=== PATIENT | female | born 1965 | race Caucasian/White ===

== ENCOUNTER → 2016-10-03 | Outpatient (CLI) | payer BC, OTHER ==
[2016-10-03 14:58] LABS: ALT 86 U/L (9-52); AST 76 U/L (14-36)
--- NOTE | 2016-10-05 07:38 | MM ---
Reason for exam: additional evaluation requested from prior study. Last mammogram was performed 3 years and 2 months ago. History: Patient is postmenopausal. Physical Findings: Nurse did not find any significant physical abnormalities on exam. [facility] Diagnostic Mammo w CAD [facility]CHO Bilateral CC and MLO view(s) were taken. Prior study comparison: August 07, 2013, bilateral digital screening mammo w/CAD. June 02, 2009, mammogram, performed at [facility]. There are scattered fibroglandular densities. Previous mammotome biopsy in the right breast. No significant new findings when compared with previous films. These results were verbally communicated with the patient and result sheet given to the patient on 10/03/16. ASSESSMENT: Benign, BI-RAD 2 RECOMMENDATION: Routine screening mammogram of both breasts in 1 year.
== END | disposition home or self-care (01) ==
LOC: RADMAMWWP 14:03
PROVIDERS: ATTEND Family Medicine
DX: N63 Unspecified lump in breast (principal); R92.8 Other abnormal and inconclusive findings on diagnostic imaging of breast; E78.00 Pure hypercholesterolemia, unspecified
CPT/HCPCS: 84450; 84460; G0204

== ENCOUNTER → 2016-10-05 | Outpatient (CLI) | payer BC ==
[2016-10-05 15:04] LABS: ALT 74 U/L (9-52); AST 60 U/L (14-36); Alkaline Phosphatase 149 U/L (38-126); Bilirubin, Delta 0.5 mg/dL (0.0-0.2); GGT 279 U/L (12-43); Total Bilirubin 0.6 mg/dL (0.2-1.3); Total Protein 8.4 g/dL (6.3-8.2)
[2016-10-05 15:35] LABS: Hepatitis B Surface Ag Index 0.09
[2016-10-05 15:41] LABS: Hepatitis B Core IgM Index 0.05
[2016-10-05 15:53] LABS: Hepatitis C Virus IgG Index 0.03
[2016-10-05 15:54] LABS: Hepatitis C Virus IgG Ab Negative (Negative)
== END | disposition home or self-care (01) ==
LOC: LABWHC1 13:49
PROVIDERS: ATTEND Family Medicine
DX: R94.5 Abnormal results of liver function studies (principal)
CPT/HCPCS: 36415; 80074; 80076; 82977

== ENCOUNTER 2016-11-14 10:57 | Day surgery (SDC) | payer BC ==
[2016-11-09 16:24] VITALS: BMI 28.1
[~2016-11-14 10:57] MED LIST: LACTATED RINGERS 1,000 ML IV SCH
[2016-11-14 11:34] VITALS: TEMP 98
[2016-11-14] MEDS ORDERED: LACTATED RINGERS 1,000 ML IV ONE (11:34)
[2016-11-14] MEDS ORDERED: LIDOCAINE 1% 20 ML VIAL (10MG/ML) FOR IV START INTRADERMA ONE (11:51)
[2016-11-14] MEDS ORDERED: PROPOFOL 10 MG/ML 20 ML VIAL IV ONE (12:37)
--- NOTE | 2016-11-14 13:23 | P.PCN ---
Date of Procedure: 11/14/16 Procedure(s) Performed: Procedure: Colonoscopy and biopsy. Preoperative diagnosis: Screening for neoplasia. Postoperative diagnosis: Diminutive distal sigmoid polyps consistent with hyperplastic polyps biopsied, otherwise, exam to the cecum showed no obvious abnormalities. Preparation: HalfLytely prep. Sedation: Was provided by anesthesia. Brief clinical history: The patient is a 51-year-old female who is referred for this evaluation for screening for neoplasia age being her risk factor in addition to family history of colon cancer in her father. The patient has no abdominal complaints, bleeding or anemia. This would be her first colonoscopy. Procedure: With the patient on her left lateral decubitus position and after informed consent and adequate sedation, the perianal area was inspected and it did not show any fissures or fistulas. There were no masses felt on digital rectal examination. The Olympus CFQ 160L video colonoscope was then inserted in the rectum in the usual fashion and advanced to the cecum. There were several small/diminutive polyps in the distal sigmoid consistent with hyperplastic polyps couple where biopsied, but there were no large polyps or cancer or other significant pathology. I retroflexed the endoscope in the rectum before the endoscope was withdrawn. The patient tolerated the procedure well. Plan: The patient was reassured. Will await biopsy results. I anticipate repeating this exam in 5 years.
[2016-11-14 13:37] VITALS: BP 137/78; PULSE 68; RESP 18
== END 2016-11-14 14:08 | disposition home or self-care (01) ==
LOC: ORWHC2ENDO 10:57
DX: Z12.11 Encounter for screening for malignant neoplasm of colon (principal); D12.5 Benign neoplasm of sigmoid colon; Z80.0 Family history of malignant neoplasm of digestive organs; E78.5 Hyperlipidemia, unspecified; Z87.891 Personal history of nicotine dependence; F41.9 Anxiety disorder, unspecified; Z79.899 Other long term (current) drug therapy
CPT/HCPCS: 88305; 45380; J2704; 99153